=== PATIENT | female | born 1975 | race Caucasian/White ===

== ENCOUNTER 2018-03-22 20:29 | Emergency (ER) | payer MEDICARE, MEDICAID ==
[~2018-03-22] VITALS: Ht 157.5 cm; Wt 90.7 kg
[~2018-03-22 20:29] MED LIST: ACETAMINOPHEN-1 EAC1 PO; ACETAMINOPHEN-120 ML PO; AMBIEN PO; AMITRIPTYLINE H10 M1 PO; AMLODIPINE; ANTACID325 MG PO; ARANESP25 MCG/0.4; ASPIR 8181 MG; AZITHROMYCIN 2250 MG PO; BACTRIM DS TAB1 EACH; CARDURA4 MG; CIPRO250 M1 PO; CIPROFLOXACIN500 M1 PO; COLACE100 MG; CORTISPORIN OTI10 ML OTIC; DARVOCET-N 1001 EACH PO; DOXYCYCLINE 10100 M1 PO; FLAGYL500 M1 PO; FLAGYL500 MG PO; FLEXERIL PO; HYDROCODON-ACE1 EAC7 PO; HYDROCODON-ACE1 EAC8 PO; HYDROCODON-ACET15 ML PO; HYDROCODONE-AP1 EAC6 PO; IBUPROFEN 800800 M1 PO; K-PHOS NEUTRAL250 MG; KEFLEX500 MG PO; LEVOTHYROXINE0.2 M1; LIDODERM 5%1 PATCH; LOPRESSOR25; LUNESTA1 MG; MACROBID 100 M100 M1 PO; MACROBID 100 M100 M2 PO; MOBIC15 MG PO; MOBIC7.5 M1 PO; MOM PO; MYCELEX; MYFORTIC PO; NORCO 5-325 TA1 EACH PO; NORFLEX100 MG PO; NORVASC 5 MG TAB5 MG; NORVASC5 MG PO; PERCOCET 5-3251 EACH PO; PHENERGAN 25 MG25 M1 PO; PHENERGAN-CODE120 ML PO; PREDNISONE 10 M10 MG PO; PRILOSEC40 MG PO; PROGRAF1 MG PO; PROTONIX40 M1; PYRIDIUM200 MG PO; SIMVASTATIN; TUSSIONEX PENN473 ML PO; VALCYTE450 MG; VENTOLIN HFA 1818 GM INH; VITAMINC500; ZANTAC 150MG T150 M1; ZOCOR20 MG PO; ZPAK PO; birth control
[2018-03-22 21:08] LABS: ABSOLUTE BASOPHILS 0.1 thou/uL (0.0-0.2); ABSOLUTE EOSINOPHILS 0.1 thou/uL (0.0-0.7); ABSOLUTE LYMPHOCYTES 2.2 thou/uL (0.8-5.3); ABSOLUTE MONOCYTES 0.8 thou/uL (0.0-1.2); ABSOLUTE NEUTROPHILS 9.5 thou/uL (1.6-8.1); BASOPHILS 0.8 %; EOSINOPHILS 0.5 %; HEMATOCRIT 43.9 % (37.0-47.0); HEMOGLOBIN 14.2 gm/dL (12.0-15.0); LYMPHOCYTES 17.5 %; MCH 28.4 pg (26.0-34.0); MCHC 32.3 g/dL (28.0-37.0); MCV 87.8 fL (80.0-100.0); MPV 8.5 fl. (7.2-11.1); NUCLEATED RBCS 0 /100WBC; PLATELET COUNT* 376 thou/uL (150-400); POLYS 75.2 %; WBC 12.6 thou/uL (4.0-11.0)
[2018-03-22 21:32] LABS: URINE BILIRUBIN NEGATIVE (Negative); URINE BLOOD 1+ (Negative); URINE CLARITY CLEAR; URINE COLOR YELLOW; URINE GLUCOSE-RANDOM NEGATIVE (Negative); URINE KETONES NEGATIVE (Negative); URINE LEUKOCYTES-REFLEX TRACE (Negative); URINE NITRITE-REFLEX NEGATIVE (Negative); URINE PROTEIN NEGATIVE (Negative); URINE UROBILINOGEN 0.2 E.U./dl (0.2-1.0)
[2018-03-22 21:33] LABS: CALCIUM 9.6 mg/dL (8.5-10.1); POTASSIUM 3.9 mmol/L (3.5-5.1)
[2018-03-22 21:41] LABS: ALBUMIN 3.8 g/dL (3.4-5.0); TOTAL BILIRUBIN 0.2 mg/dL (<0.1-1.0); TOTAL PROTEIN 8.1 g/dL (6.4-8.2)
[2018-03-22 21:44] LABS: SQUAMOUS >10 Many /LPF (0-3)
[2018-03-22 21:45] LABS: BACTERIA-REFLEX 1-9 Few /HPF (None Seen); CASTS None Seen /LPF (None Seen); CRYSTALS None Seen /LPF (None Seen); MUCUS None Seen strn/LPF (None Seen); URINE RBC 0-2 Rare /HPF (0-2); URINE WBC-REFLEX 0-5 Rare /HPF (0-5)
[2018-03-22] MEDS ORDERED: NORCO 5-325 TA1 EAC1 PO (21:52)
[2018-03-22 22:07] VITALS: BP 141/84
== END 2018-03-22 22:08 | disposition home or self-care (01) ==
LOC: M.ERS 20:29
PROVIDERS: Nurse Practitioner Family
DX: R51 Headache (principal); R11.2 Nausea with vomiting, unspecified; I10 Essential (primary) hypertension; E78.00 Pure hypercholesterolemia, unspecified; E03.9 Hypothyroidism, unspecified; Z88.0 Allergy status to penicillin; Z88.1 Allergy status to other antibiotic agents; Z88.6 Allergy status to analgesic agent; Z88.8 Allergy status to other drugs, medicaments and biological substances; Z91.041 Radiographic dye allergy status; Z90.5 Acquired absence of kidney; Z94.0 Kidney transplant status

== ENCOUNTER 2018-11-01 23:15 | Emergency (ER) | payer MEDICARE, MEDICAID ==
[~2018-11-01] VITALS: Ht 157.5 cm; Wt 104.3 kg
[~2018-11-01 23:15] MED LIST changes: +NORCO 5-325 TA1 EAC1 PO
[2018-11-01] MEDS ORDERED: DEPAKOTE125 MG PO (23:28)
[2018-11-01] MEDS ORDERED: FLEXERIL PO (23:28)
[2018-11-01] MEDS ORDERED: KEFLEX500 M1 PO (23:47)
[2018-11-01] MEDS ORDERED: TRIAMCINOLONE A80 G2 TOP (23:47)
[2018-11-01] MEDS ORDERED: NORCO 5-325 TA1 EAC1 PO (23:47)
[2018-11-02 00:01] VITALS: BP 150/95
== END 2018-11-02 00:02 | disposition home or self-care (01) ==
LOC: M.ERS 23:15
DX: T78.40XA Allergy, unspecified, initial encounter (principal); X58.XXXA Exposure to other specified factors, initial encounter; I10 Essential (primary) hypertension; E78.00 Pure hypercholesterolemia, unspecified; E05.90 Thyrotoxicosis, unspecified without thyrotoxic crisis or storm; Z90.49 Acquired absence of other specified parts of digestive tract; Z90.5 Acquired absence of kidney; Z88.0 Allergy status to penicillin; Z88.5 Allergy status to narcotic agent; Z91.041 Radiographic dye allergy status

== ENCOUNTER → 2018-11-04 | Outpatient (CLI) | payer MEDICARE, MEDICAID ==
[~2018-11-04] MED LIST changes: +DEPAKOTE125 MG PO; +KEFLEX500 M1 PO; +TRIAMCINOLONE A80 G2 TOP
== END ==
LOC: M.MRI 10:44
DX: I82.611 Acute embolism and thrombosis of superficial veins of right upper extremity (principal)

== ENCOUNTER → 2018-11-17 | Outpatient (CLI) | payer MEDICARE, MEDICAID | LOC: M.MRI 11-02 08:30 | DX: M47.816 Spondylosis without myelopathy or radiculopathy, lumbar region (principal); M47.817 Spondylosis without myelopathy or radiculopathy, lumbosacral region; M43.26 Fusion of spine, lumbar region; N83.8 Other noninflammatory disorders of ovary, fallopian tube and broad ligament; M43.25 Fusion of spine, thoracolumbar region; K22.10 Ulcer of esophagus without bleeding; E78.01 Familial hypercholesterolemia; Z88.0 Allergy status to penicillin; Z88.8 Allergy status to other drugs, medicaments and biological substances ==

== ENCOUNTER 2018-11-29 08:53 | Emergency (ER) | payer MEDICARE, MEDICAID ==
[~2018-11-29] VITALS: Ht 157.5 cm; Wt 104.3 kg
[2018-11-29] MEDS ORDERED: PHENERGAN 25 MG25 M1 PO (09:23)
[2018-11-29] MEDS ORDERED: BENTYL 10 MG CA10 M1 PO (09:23)
[2018-11-29 09:31] VITALS: BP 138/99
== END 2018-11-29 09:31 | disposition home or self-care (01) ==
LOC: M.ERS 08:53
DX: R11.2 Nausea with vomiting, unspecified (principal); R19.7 Diarrhea, unspecified; I10 Essential (primary) hypertension; E78.00 Pure hypercholesterolemia, unspecified; Z90.49 Acquired absence of other specified parts of digestive tract; E03.9 Hypothyroidism, unspecified; Z90.5 Acquired absence of kidney; Z94.0 Kidney transplant status; Z98.890 Other specified postprocedural states; Z91.041 Radiographic dye allergy status; Z88.0 Allergy status to penicillin; Z88.5 Allergy status to narcotic agent; Z88.1 Allergy status to other antibiotic agents; Z88.8 Allergy status to other drugs, medicaments and biological substances

== ENCOUNTER → 2018-12-01 | Outpatient (CLI) | payer MEDICARE, MEDICAID ==
[~2018-12-01] MED LIST changes: +BENTYL 10 MG CA10 M1 PO
== END ==
LOC: M.ULTRA 08:00
DX: N83.292 Other ovarian cyst, left side (principal); N83.201 Unspecified ovarian cyst, right side; N88.8 Other specified noninflammatory disorders of cervix uteri

== ENCOUNTER 2019-02-15 00:01 | Emergency (ER) | payer MEDICARE, MEDICAID ==
[~2019-02-15] VITALS: Ht 157.5 cm; Wt 104.3 kg
[2019-02-15 01:08] LABS: URINE BILIRUBIN NEGATIVE (Negative); URINE BLOOD TRACE (Negative); URINE CLARITY CLEAR; URINE COLOR YELLOW; URINE GLUCOSE-RANDOM NEGATIVE (Negative); URINE KETONES NEGATIVE (Negative); URINE LEUKOCYTES-REFLEX 1+ (Negative); URINE NITRITE-REFLEX NEGATIVE (Negative); URINE PROTEIN TRACE (Negative); URINE SPECIFIC GRAVITY 1.025 (1.005-1.030); URINE UROBILINOGEN 0.2 E.U./dl (0.2-1.0)
[2019-02-15 01:15] LABS: AMP/METHAMP Negative (Negative); BARBITURATES Negative (Negative); BENZODIAZEPINES Negative (Negative); COCAINE Negative (Negative); METHADONE Negative (Negative); OPIATES Negative (Negative); PCP Negative (Negative); THC POSITIVE (Negative)
[2019-02-15 01:41] LABS: CALCIUM 10.4 mg/dL (8.5-10.1); CREATININE 1.1 mg/dL (0.6-1.3); POTASSIUM 3.7 mmol/L (3.5-5.1)
[2019-02-15 01:46] LABS: ALBUMIN 3.6 g/dL (3.4-5.0); TOTAL BILIRUBIN 0.3 mg/dL (<0.1-1.0); TOTAL PROTEIN 7.8 g/dL (6.4-8.2)
[2019-02-15 02:02] LABS: SQUAMOUS >10 Many /LPF (0-3)
[2019-02-15 02:03] LABS: CASTS None Seen /LPF (None Seen)
[2019-02-15 02:04] LABS: URINE RBC 0-2 Rare /HPF (0-2)
[2019-02-15 02:05] LABS: BACTERIA-REFLEX >30 Many /HPF (None Seen); CRYSTALS None Seen /LPF (None Seen)
[2019-02-15 02:35] LABS: HEMOGLOBIN 15.3 gm/dL (12.0-15.0); NUCLEATED RBCS 0 /100WBC
[2019-02-15 02:43] LABS: ABSOLUTE BASOPHILS 0.1 thou/uL (0.0-0.2); ABSOLUTE EOSINOPHILS 0.7 thou/uL (0.0-0.7); ABSOLUTE LYMPHOCYTES 3.8 thou/uL (0.8-5.3); ABSOLUTE MONOCYTES 0.8 thou/uL (0.0-1.2); ABSOLUTE NEUTROPHILS 5.5 thou/uL (1.6-8.1); EOSINOPHILS 6.3 %; HEMATOCRIT 45.4 % (37.0-47.0); LYMPHOCYTES 34.6 %; MCH 29.9 pg (26.0-34.0); MCHC 33.7 g/dL (28.0-37.0); MCV 88.8 fL (80.0-100.0); MONOCYTES 7.6 %; MPV 9.8 fl. (7.2-11.1); PLATELET COUNT* 301 thou/uL (150-400); POLYS 50.5 %; RBC 5.11 mil/uL (4.20-5.00); RDW-CV 13.9 % (10.5-14.5); WBC 10.9 thou/uL (4.0-11.0)
[2019-02-15 06:05] VITALS: BP 128/79
== END 2019-02-15 06:05 | disposition short-term general hospital (02) ==
LOC: M.ERS 00:01
PROVIDERS: Personal Emergency Response Attendant
DX: T86.11 Kidney transplant rejection (principal); K58.9 Irritable bowel syndrome, unspecified; I10 Essential (primary) hypertension; E78.00 Pure hypercholesterolemia, unspecified; E03.9 Hypothyroidism, unspecified; Z88.1 Allergy status to other antibiotic agents; Z91.041 Radiographic dye allergy status; Z88.0 Allergy status to penicillin; Z88.5 Allergy status to narcotic agent; Z88.8 Allergy status to other drugs, medicaments and biological substances; Z79.899 Other long term (current) drug therapy

== ENCOUNTER → 2019-04-06 | Outpatient (CLI) | payer MEDICARE, MEDICAID | LOC: M.MRI 03-31 17:11 → M.RAD 04-05 08:30 → M.MRI 07:21 | DX: M51.36 Other intervertebral disc degeneration, lumbar region (principal); M76.51 Patellar tendinitis, right knee; K27.9 Peptic ulcer, site unspecified, unspecified as acute or chronic, without hemorrhage or perforation; K22.10 Ulcer of esophagus without bleeding; E03.9 Hypothyroidism, unspecified; I10 Essential (primary) hypertension; T86.10 Unspecified complication of kidney transplant; M43.25 Fusion of spine, thoracolumbar region; M51.34 Other intervertebral disc degeneration, thoracic region ==

== ENCOUNTER → 2019-08-09 | Outpatient (CLI) | payer MEDICARE, MEDICAID | LOC: M.MRI 08-05 08:50 | DX: M19.011 Primary osteoarthritis, right shoulder (principal); M75.21 Bicipital tendinitis, right shoulder ==

== ENCOUNTER → 2019-11-16 | Outpatient (CLI) | payer MEDICARE, MEDICAID | LOC: M.MRI 13:04 | DX: S09.90XA Unspecified injury of head, initial encounter (principal); X58.XXXA Exposure to other specified factors, initial encounter; Y93.89 Activity, other specified; Y92.89 Other specified places as the place of occurrence of the external cause; Y99.8 Other external cause status ==

== ENCOUNTER → 2020-02-17 | Outpatient (CLI) | payer MEDICARE, MEDICAID | LOC: M.LAB 09:15 | PROVIDERS: ATTEND Internal Medicine | DX: E66.01 Morbid (severe) obesity due to excess calories (principal); R73.03 Prediabetes; M85.80 Other specified disorders of bone density and structure, unspecified site; R00.2 Palpitations; Z78.0 Asymptomatic menopausal state ==

== ENCOUNTER → 2020-02-22 | Outpatient (CLI) | payer MEDICARE, MEDICAID ==
--- NOTE | 2020-02-28 16:52 | 24HR ---
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 Sinus rhythm at rates which vary from 67-128 with an average of 94 2. Rare isolated PACs and PVCs without complex arrhythmias 3. No significant pauses in the cardiac rhythm Electronically Signed On 02-28-2020 16:51:55 CLINIC CHARGE NURSE by Chinedu Cheema [email or web address] <ELECTRONICALLY SIGNED> By: Chinedu Cheema MD, [facility] 02/28/20 1651 1122 1122 Chinedu Cheema MD, [facility] /EPI
== END ==
LOC: M.RAD 10:55 → M.CRD 11:30
PROVIDERS: ATTEND Internal Medicine
DX: Z12.31 Encounter for screening mammogram for malignant neoplasm of breast (principal); R00.2 Palpitations; M85.88 Other specified disorders of bone density and structure, other site

== ENCOUNTER 2020-06-23 12:45 | Emergency (ER) | payer MEDICAID ==
[~2020-06-23] VITALS: Ht 157.5 cm; Wt 111.1 kg
[2020-06-23] MEDS ORDERED: AMITRIPTYLINE150 MG PO (12:57)
[2020-06-23] MEDS ORDERED: CIPROHEPTADINE (12:59)
[2020-06-23 13:27] LABS: URINE BILIRUBIN NEGATIVE (Negative); URINE BLOOD TRACE (Negative); URINE CLARITY SL CLOUDY; URINE COLOR YELLOW; URINE GLUCOSE-RANDOM NEGATIVE (Negative); URINE KETONES NEGATIVE (Negative); URINE NITRITE-REFLEX NEGATIVE (Negative); URINE PROTEIN NEGATIVE (Negative); URINE SPECIFIC GRAVITY 1.015 (1.005-1.030); URINE UROBILINOGEN 0.2 E.U./dl (0.2-1.0)
[2020-06-23 13:28] LABS: URINE LEUKOCYTES-REFLEX 2+ (Negative)
[2020-06-23 13:35] LABS: SQUAMOUS >10 Many /LPF (0-3); URINE WBC-REFLEX 6-15 Few /HPF (0-5)
[2020-06-23 13:36] LABS: BACTERIA-REFLEX 1-9 Few /HPF (None Seen); CASTS None Seen /LPF (None Seen); CRYSTALS None Seen /LPF (None Seen); URINE RBC 3-10 Few /HPF (0-2)
[2020-06-23] MEDS ORDERED: FLAGYL500 M1 PO (14:46)
[2020-06-23] MEDS ORDERED: NYSTATIN 100,0015 G1 TOP (14:47)
[2020-06-23] MEDS ORDERED: BACTRIM DS TAB1 EACH PO (14:48)
[2020-06-23 15:00] VITALS: BP 157/88
== END 2020-06-23 15:00 | disposition home or self-care (01) ==
LOC: M.ERS 12:45
PROVIDERS: Physician Assistant
DX: N76.0 Acute vaginitis (principal); B96.89 Other specified bacterial agents as the cause of diseases classified elsewhere; N39.0 Urinary tract infection, site not specified; B37.9 Candidiasis, unspecified; G43.909 Migraine, unspecified, not intractable, without status migrainosus; I10 Essential (primary) hypertension; E78.00 Pure hypercholesterolemia, unspecified; K58.9 Irritable bowel syndrome, unspecified; E03.9 Hypothyroidism, unspecified; Z91.041 Radiographic dye allergy status; Z88.0 Allergy status to penicillin; Z88.5 Allergy status to narcotic agent; Z88.8 Allergy status to other drugs, medicaments and biological substances; Z94.0 Kidney transplant status

== ENCOUNTER 2020-07-10 17:54 | Emergency (ER) | payer MEDICAID ==
[~2020-07-10] VITALS: Ht 157.5 cm; Wt 108.9 kg
[~2020-07-10 17:54] MED LIST changes: +AMITRIPTYLINE150 MG PO; +BACTRIM DS TAB1 EACH PO; +CIPROHEPTADINE; +NYSTATIN 100,0015 G1 TOP
[2020-07-10 18:52] LABS: URINE BILIRUBIN NEGATIVE (Negative); URINE BLOOD 2+ (Negative); URINE CLARITY CLOUDY; URINE COLOR YELLOW; URINE GLUCOSE-RANDOM NEGATIVE (Negative); URINE KETONES NEGATIVE (Negative); URINE LEUKOCYTES-REFLEX 2+ (Negative); URINE NITRITE-REFLEX NEGATIVE (Negative); URINE PROTEIN 2+ (Negative); URINE SPECIFIC GRAVITY >= 1.030 (1.005-1.030); URINE UROBILINOGEN 0.2 E.U./dl (0.2-1.0)
[2020-07-10 18:55] LABS: BACTERIA-REFLEX >30 Many /HPF (None Seen); CASTS None Seen /LPF (None Seen); SQUAMOUS >10 Many /LPF (0-3); URINE RBC 3-10 Few /HPF (0-2); URINE WBC-REFLEX >25 Many /HPF (0-5)
[2020-07-10 18:56] LABS: CRYSTALS None Seen /LPF (None Seen)
[2020-07-10 19:28] LABS: ABSOLUTE BASOPHILS 0.1 thou/uL (0.0-0.2); ABSOLUTE EOSINOPHILS 0.5 thou/uL (0.0-0.7); ABSOLUTE LYMPHOCYTES 2.8 thou/uL (0.8-5.3); ABSOLUTE NEUTROPHILS 4.6 thou/uL (1.6-8.1); EOSINOPHILS 5.1 %; HEMATOCRIT 44.4 % (37.0-47.0); HEMOGLOBIN 14.5 gm/dL (12.0-15.0); LYMPHOCYTES 31.1 %; MCH 29.1 pg (26.0-34.0); MCHC 32.7 g/dL (28.0-37.0); MCV 89.1 fL (80.0-100.0); MONOCYTES 11.5 %; MPV 8.9 fl. (7.2-11.1); NUCLEATED RBCS 0 /100WBC; PLATELET COUNT* 341 thou/uL (150-400); POLYS 51.3 %; RBC 4.98 mil/uL (4.20-5.00); RDW-CV 14.5 % (10.5-14.5); WBC 8.9 thou/uL (4.0-11.0)
[2020-07-10] MEDS ORDERED: KEFLEX500 M1 PO (19:45)
[2020-07-10] MEDS ORDERED: NORCO5 PO (19:49)
[2020-07-10 19:50] LABS: ANION GAP 9 mmol/L (7-16); BUN 15 mg/dL (7-18); CALCIUM 9.5 mg/dL (8.5-10.1); CHLORIDE 104 mmol/L (98-107); CO2 26 mmol/L (21-32); CREATININE 0.9 mg/dL (0.6-1.3); GLUCOSE 92 mg/dL (70-99); POTASSIUM 4.5 mmol/L (3.5-5.1); SODIUM 139 mmol/L (136-145)
[2020-07-10 19:54] LABS: ALBUMIN 3.3 g/dL (3.4-5.0); ALKALINE PHOSPHATASE 99 U/L (46-116); LIPASE 134 U/L (73-393); SGOT < 5 U/L (15-37); SGPT 18 U/L (30-65); TOTAL BILIRUBIN 0.5 mg/dL (<0.1-1.0); TOTAL PROTEIN 7.8 g/dL (6.4-8.2)
[2020-07-10 20:48] VITALS: BP 110/55
--- NOTE | 2020-07-11 13:01 | EKG ---
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1975 Requested By: Nina Perales Order Number: [id number] MD: Chinedu Cheema Measurements Intervals [place] Rate: 70 P: -4 MS: 190 QRS: -40 QRSD: 117 T: 45 QT: 428 QTc: 462 Interpretive Statements Sinus rhythm Nonspecific intraventricular conduction delay Left ventricular hypertrophy Compared to prior tracing IVCD is noted Right bundle-branch block no longer present Electronically Signed On 07-11-2020 13:01:27 CDT by Chinedu Cheema [email or web address] <ELECTRONICALLY SIGNED> By: Chinedu Cheema MD, [facility] 07/11/20 1301 33 33 Chinedu Cheema MD, [facility] /EPI
== END 2020-07-10 20:48 | disposition home or self-care (01) ==
LOC: M.ERS 17:54
PROVIDERS: Nurse Practitioner Family
DX: N39.0 Urinary tract infection, site not specified (principal); I10 Essential (primary) hypertension; E78.00 Pure hypercholesterolemia, unspecified; E03.9 Hypothyroidism, unspecified; K58.9 Irritable bowel syndrome, unspecified; Z91.041 Radiographic dye allergy status; Z88.0 Allergy status to penicillin; Z88.5 Allergy status to narcotic agent; Z88.1 Allergy status to other antibiotic agents; Z88.8 Allergy status to other drugs, medicaments and biological substances; Z90.5 Acquired absence of kidney; Z94.0 Kidney transplant status

== ENCOUNTER 2021-02-23 13:34 | Emergency (ER) | payer MEDICARE, MEDICAID ==
[~2021-02-23] VITALS: Ht 157.5 cm; Wt 113.4 kg
[~2021-02-23 13:34] MED LIST changes: +NORCO5 PO
[2021-02-23 15:08] LABS: URINE BILIRUBIN NEGATIVE (Negative); URINE BLOOD 2+ (Negative); URINE CLARITY CLOUDY; URINE COLOR YELLOW; URINE GLUCOSE-RANDOM NEGATIVE (Negative); URINE KETONES NEGATIVE (Negative); URINE NITRITE-REFLEX NEGATIVE (Negative); URINE PROTEIN TRACE (Negative); URINE UROBILINOGEN 0.2 E.U./dl (0.2-1.0)
[2021-02-23 15:19] LABS: URINE LEUKOCYTES-REFLEX 3+ (Negative)
[2021-02-23 15:21] LABS: CASTS None Seen /LPF (None Seen); CRYSTALS None Seen /LPF (None Seen); MUCUS 0-3 Light strn/LPF (None Seen); SQUAMOUS >10 Many /LPF (0-3); URINE RBC 3-10 Few /HPF (0-2); URINE WBC-REFLEX >25 Many /HPF (0-5)
[2021-02-23 15:26] LABS: INFLUENZA A ANTIGEN Negative (Negative); INFLUENZA B ANTIGEN Negative (Negative)
[2021-02-23 15:54] LABS: ABSOLUTE BASOPHILS 0.1 thou/uL (0.0-0.2); ABSOLUTE EOSINOPHILS 0.2 thou/uL (0.0-0.7); ABSOLUTE LYMPHOCYTES 1.7 thou/uL (0.8-5.3); ABSOLUTE MONOCYTES 0.8 thou/uL (0.0-1.2); ABSOLUTE NEUTROPHILS 6.6 thou/uL (1.6-8.1); BASOPHILS 1.2 %; HEMATOCRIT 41.3 % (37.0-47.0); LYMPHOCYTES 18.1 %; MCH 29.8 pg (26.0-34.0); MCHC 33.9 g/dL (28.0-37.0); MCV 87.9 fL (80.0-100.0); MONOCYTES 8.4 %; MPV 8.9 fl. (7.2-11.1); NUCLEATED RBCS 0 /100WBC; PLATELET COUNT* 238 thou/uL (150-400); POLYS 70.3 %; WBC 9.4 thou/uL (4.0-11.0)
[2021-02-23 15:55] LABS: AMP/METHAMP Negative (Negative); BARBITURATES Negative (Negative); BENZODIAZEPINES Negative (Negative); COCAINE Negative (Negative); METHADONE Negative (Negative); OPIATES Negative (Negative); PCP Negative (Negative); THC POSITIVE (Negative)
[2021-02-23 16:03] LABS: CALCIUM 8.9 mg/dL (8.5-10.1); CREATININE 1.2 mg/dL (0.6-1.3); POTASSIUM 3.3 mmol/L (3.5-5.1)
[2021-02-23 16:09] LABS: ALBUMIN 3.4 g/dL (3.4-5.0); TOTAL BILIRUBIN 0.4 mg/dL (<0.1-1.0); TOTAL PROTEIN 7.8 g/dL (6.4-8.2)
[2021-02-23] MEDS ORDERED: CEPHALEXIN500 MG PO (16:41)
--- NOTE | 2021-02-23 17:31 | EKG ---
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1975 Requested By: Zaid Prescott Order Number: [id number] MD: Lucas Plummer Measurements Intervals [place] Rate: 80 P: 10 [place]: 192 QRS: -51 QRSD: 114 T: 29 QT: 414 QTc: 478 Interpretive Statements Sinus rhythm Incomplete left bundle branch block ST elev, probable normal early repol pattern Borderline prolonged QT interval Compared to ECG 07/10/2020 19:34:58 ST (T wave) deviation now present Electronically Signed On 02-23-2021 17:31:20 CDT by Lucas Plummer [email or web address] <ELECTRONICALLY SIGNED> By: Lucas Plummer MD, FAC 02/23/21 1731 1726 1726 Lucas Plummer MD, FAC /EPI
[2021-02-23 18:05] VITALS: BP 164/105
== END 2021-02-23 18:06 | disposition home or self-care (01) ==
LOC: M.ERS 13:34
PROVIDERS: Nurse Practitioner Psychiatric/Mental Health
DX: E87.6 Hypokalemia (principal); Z20.822 Contact with and (suspected) exposure to COVID-19; N39.0 Urinary tract infection, site not specified; G43.909 Migraine, unspecified, not intractable, without status migrainosus; I10 Essential (primary) hypertension; E78.00 Pure hypercholesterolemia, unspecified; E05.80 Other thyrotoxicosis without thyrotoxic crisis or storm; Z94.0 Kidney transplant status; Z90.5 Acquired absence of kidney; Z98.890 Other specified postprocedural states; Z79.899 Other long term (current) drug therapy; Z79.82 Long term (current) use of aspirin; Z91.041 Radiographic dye allergy status; Z88.0 Allergy status to penicillin; Z91.048 Other nonmedicinal substance allergy status; Z88.5 Allergy status to narcotic agent; Z87.42 Personal history of other diseases of the female genital tract; Z90.49 Acquired absence of other specified parts of digestive tract

== ENCOUNTER 2021-04-18 23:31 | Emergency (ER) | payer MEDICARE, MEDICAID ==
[~2021-04-18] VITALS: Ht 157.5 cm; Wt 113.4 kg
[~2021-04-18 23:31] MED LIST changes: +CEPHALEXIN500 MG PO
[2021-04-19 00:27] LABS: HEMATOCRIT 43.9 % (37.0-47.0); HEMOGLOBIN 14.7 gm/dL (12.0-15.0); MCH 29.5 pg (26.0-34.0); MCHC 33.5 g/dL (28.0-37.0); MCV 88.2 fL (80.0-100.0); MPV 9.1 fl. (7.2-11.1); NUCLEATED RBCS 0 /100WBC; PLATELET COUNT* 303 thou/uL (150-400); RBC 4.98 mil/uL (4.20-5.00); RDW-CV 14.3 % (10.5-14.5); WBC 10.1 thou/uL (4.0-11.0)
[2021-04-19 00:48] LABS: CALCIUM 9.3 mg/dL (8.5-10.1); POTASSIUM 4.5 mmol/L (3.5-5.1)
[2021-04-19 00:52] LABS: ALBUMIN 3.6 g/dL (3.4-5.0); MAGNESIUM 1.4 mg/dL (1.8-2.4); TOTAL BILIRUBIN 0.5 mg/dL (<0.1-1.0)
[2021-04-19 01:20] LABS: ABSOLUTE LYMPHOCYTES 0.8 thou/uL (0.8-5.3); ABSOLUTE MONOCYTES 0.5 thou/uL (0.0-1.2); ABSOLUTE NEUTROPHILS 8.8 thou/uL (1.6-8.1); PLATELET ESTIMATE ADEQUATE; TOXIC GRANULATION 1+
[2021-04-19] MEDS ORDERED: APAP W/CODEINE1 TA2 PO (01:55)
[2021-04-19] MEDS ORDERED: COMPAZINE10 M2 PO (01:55)
[2021-04-19 02:05] VITALS: BP 130/68
== END 2021-04-19 02:05 | disposition home or self-care (01) ==
LOC: M.ERS 23:31
PROVIDERS: Emergency Medicine
DX: R11.2 Nausea with vomiting, unspecified (principal); R19.7 Diarrhea, unspecified; I10 Essential (primary) hypertension; G43.909 Migraine, unspecified, not intractable, without status migrainosus; Z79.899 Other long term (current) drug therapy; Z88.0 Allergy status to penicillin; Z88.5 Allergy status to narcotic agent; Z88.6 Allergy status to analgesic agent; Z91.02 Food additives allergy status

== ENCOUNTER → 2021-05-14 | Outpatient (CLI) | payer MEDICARE, MEDICAID ==
[~2021-05-14] MED LIST changes: +APAP W/CODEINE1 TA2 PO; +COMPAZINE10 M2 PO
[2021-05-14 09:15] LABS: HEMATOCRIT 40.4 % (37.0-47.0); HEMOGLOBIN 13.2 gm/dL (12.0-15.0); MCH 28.6 pg (26.0-34.0); MCHC 32.7 g/dL (28.0-37.0); MCV 87.3 fL (80.0-100.0); RBC 4.63 mil/uL (4.20-5.00); RDW-CV 14.1 % (10.5-14.5); WBC 7.2 thou/uL (4.0-11.0)
[2021-05-14 09:16] LABS: ALBUMIN 3.4 g/dL (3.4-5.0); ALKALINE PHOSPHATASE 105 U/L (46-116); ANION GAP 9 mmol/L (7-16); BUN 11 mg/dL (7-18); CHLORIDE 104 mmol/L (98-107); CO2 28 mmol/L (21-32); CREATININE 0.9 mg/dL (0.6-1.3); GLUCOSE 121 mg/dL (70-99); MAGNESIUM 1.7 mg/dL (1.8-2.4); PHOSPHORUS* 2.9 mg/dL (2.5-4.9); SGOT 16 U/L (15-37); SGPT 33 U/L (30-65); SODIUM 141 mmol/L (136-145); TOTAL BILIRUBIN 0.5 mg/dL (<0.1-1.0); TOTAL PROTEIN 7.6 g/dL (6.4-8.2)
[2021-05-14 11:44] LABS: CHOLESTEROL 149 mg/dL (<200); HDL CHOLESTEROL 37 mg/dL (>40); LDL CHOLESTEROL 67 mg/dL (<100); SERUM ASSESSMENT Clear; TRIGLYCERIDE 227 mg/dL (<150); VLDL 45 mg/dL (<40)
== END ==
LOC: M.LAB 08:34
PROVIDERS: ATTEND Internal Medicine
DX: E83.40 Disorders of magnesium metabolism, unspecified (principal); E83.30 Disorder of phosphorus metabolism, unspecified; Z94.0 Kidney transplant status; Z79.899 Other long term (current) drug therapy